=== PATIENT | female | born 1980 | race Caucasian/White ===

== ENCOUNTER 2020-05-06 10:29 | Observation (INO) ==
[2020-05-06 10:36] VITALS: BP 145/91
[2020-05-06 11:07] LABS: Basophils % 0.4 % (0.0-0.8); Eosinophils # 0.1 10*3/uL (0.0-0.87); Eosinophils % 1.4 % (0.00-10.9); Hematocrit 44.5 VOL% (35.7-47.0); Hemoglobin 15.8 GM/DL (12.0-16.0); Immature Granulocytes % 0.4 %; Immature Granulocytes Absolute 0.03 #; Lymphocytes # 2.7 10*3/uL (1.4-4.0); Lymphocytes % 34.4 % (21.3-54.2); Mean Corpuscular HGB Conc 35.5 GM/DL (32-36); Mean Corpuscular Volume 95.7 FL (87-102); Mean Platelet Volume 9.8 FL (9.6-12.0); Monocytes % 5.8 % (1.7-12.7); Neutrophils % 57.6 % (38.7-73.9); Platelet Count 247 T/CUMM (130-400); Red Blood Count 4.65 MC/CUMM (3.8-5.5); Red Cell Distribution Width 11.9 % (9.3-17.3); White Blood Count 7.7 T/CUMM (4-12)
[2020-05-06 11:12] LABS: Bacteria,Urine Occasional /HPF (Few); Bilirubin,Urine Negative (Negative); Blood, Urine Negative (Negative); Glucose,Urine (UA) Negative (Negative); Ketones,Urine Negative (Negative); Mucus,Urine Occasional /LPF (Occasional); Nitrite,Urine Negative (Negative); Protein,Urine Negative; RBC,Urine <1 /HPF (0-4); Squamous Epithelial Cell,Urine Occasional /HPF (0-10); Urine Appearance CLEAR (Clear); Urine Color Colorless (Yellow); Urine Specific Gravity 1.001 (1.001-1.035); Urine Urobilinogen < 2.0 EU/DL (0.2-1.0)
[2020-05-06 11:38] LABS: Albumin 4.3 G/DL (3.4-5.0); Bilirubin,Total 1.6 MG/DL (0.2-1.0); Calcium 9.1 MG/DL (8.5-10.1); Osmolality,Calculated 277.4 MOS/KG (273-304); Total Protein 7.4 G/DL (6.4-8.3)
[2020-05-06] MEDS ORDERED: ALUM/MAG/SIMETH/LIDO VISC 1:1 30 ML BOTTLE PO STA (12:42)
[2020-05-06] MEDS ORDERED: HYDROmorphone 2 MG/1 ML VIAL IV PRN (13:53)
[2020-05-06] MEDS ORDERED: ONDANSETRON 4 MG/2 ML VIAL IV PRN (13:53)
[2020-05-06] MEDS ORDERED: ACETAMINOPHEN 325 MG TABLET PO PRN (13:53)
[2020-05-06] MEDS ORDERED: BISACODYL 5 MG TABLET PO PRN (13:53)
[2020-05-06] MEDS ORDERED: KETOROLAC 15 MG/1 ML VIAL IV PRN (13:53)
[2020-05-06] MEDS ORDERED: LACTATED RINGERS 1,000 ML IV SCH (14:00)
[2020-05-06] MEDS ORDERED: KETOROLAC 30 MG/1 ML VIAL ONE (15:56)
[2020-05-06] MEDS ORDERED: PANTOPRAZOLE 40 MG VIAL IV STA (16:43)
[2020-05-07] MEDS ORDERED: AMLODIPINE OLMESARTAN PO SCH (09:00)
[2020-05-07] MEDS ORDERED: PANTOPRAZOLE 40 MG TABLET PO SCH (09:00)
[2020-05-07] MEDS ORDERED: LEVOTHYROXINE 50 MCG TABLET PO SCH (09:00)
== END 2020-05-06 17:16 | disposition home or self-care (01) ==
LOC: N.ED 10:29 → N.EDINP 10:29
PROVIDERS: ADMIT Surgery; ATTEND Surgery